=== PATIENT | female | born 1980 | race Caucasian/White ===

== ENCOUNTER 2018-11-05 18:08 | Emergency (ER) | payer SELFPAY, OTHER ==
[2018-11-05] MEDS: ACETAMINOPHEN 325 MG TAB PO (19:51)
== END 2018-11-05 21:37 | disposition home or self-care (01) ==
LOC: FTE 21:37
DX: G50.0 Trigeminal neuralgia (principal); Z79.84 Long term (current) use of oral hypoglycemic drugs
CPT/HCPCS: 70450; 82962; 99284-25